=== PATIENT | male | born 1995 | race Caucasian/White ===

== ENCOUNTER → 2016-03-25 | Outpatient (CLI) | payer MEDICAID | LOC: RAD 17:33 | PROVIDERS: ATTEND Physician Assistant | DX: E04.9 Nontoxic goiter, unspecified (principal) | CPT/HCPCS: 76536 ==

== ENCOUNTER 2016-08-20 21:47 | Emergency (ER) | payer MEDICAID ==
[2016-08-20 22:00] VITALS: BP 140/63
== END 2016-08-20 23:50 | disposition left against medical advice (07) ==
LOC: ER 21:47
DX: Z53.21 Procedure and treatment not carried out due to patient leaving prior to being seen by health care provider (principal)

== ENCOUNTER → 2016-08-26 | Outpatient (CLI) | payer MEDICAID ==
[2016-08-26 13:04] LABS: ALANINE AMINOTRANSFERASE 39 U/L (21-72); ALBUMIN 4.5 g/dL (3.5-5.0); ALKALINE PHOSPHATASE 186 U/L (38-126); ANION GAP 12 (5-19); ASPARTATE AMINO TRANSFERASE 21 U/L (17-59); BILIRUBIN,DIRECT 0.3 mg/dL (0.0-0.4); BILIRUBIN,TOTAL 0.6 mg/dL (0.2-1.3); BLOOD UREA NITROGEN 8 mg/dL (7-20); CALCIUM 9.5 mg/dL (8.4-10.2); CARBON DIOXIDE 25 mmol/L (22-30); CHLORIDE 102 mmol/L (98-107); GLUCOSE 91 mg/dL (75-110); POTASSIUM 4.8 mmol/L (3.6-5.0); SODIUM 138.6 mmol/L (137-145); TOTAL PROTEIN 7.8 g/dL (6.3-8.2)
[2016-08-26 13:25] LABS: HEMATOCRIT 43.2 % (37.9-51.0); HEMOGLOBIN 14.7 g/dL (13.5-17.0); HGB HCT DIFFERENCE 0.9; MEAN CORPUSCULAR HEMOGLOBIN 28.9 pg (27.0-33.4); MEAN CORPUSCULAR VOLUME 85 fl (80-97); RED BLOOD COUNT 5.08 10^6/uL (4.35-5.55); RED CELL DISTRIBUTION WIDTH 14.9 % (11.5-14.0); WHITE BLOOD COUNT 7.1 10^3/uL (4.0-10.5)
[2016-08-26 13:40] LABS: THYROID STIMULATING HORMONE < 0.02 uIU/mL (0.47-4.68)
--- NOTE | 2016-08-26 21:55 | EKG REPORT ---
SEVERITY:- NORMAL ECG - SINUS RHYTHM : Confirmed by: Rosi Tsang 26-Aug-2016 21:54:45
== END ==
LOC: OD 11:39
PROVIDERS: ATTEND Physician Assistant
DX: Z01.810 Encounter for preprocedural cardiovascular examination (principal); Z01.812 Encounter for preprocedural laboratory examination; Z01.818 Encounter for other preprocedural examination; E05.00 Thyrotoxicosis with diffuse goiter without thyrotoxic crisis or storm
CPT/HCPCS: 36415; 80053; 84439; 84443; 85025; 85027; 93005; 93010

== ENCOUNTER 2016-10-08 18:38 | Emergency (ER) | payer MEDICAID ==
--- NOTE | 2016-10-08 18:53 | ER Document Report ---
ED Medical Screen (RME) - General Chief Complaint: Abnormal Lab Results Stated Complaint: ABNORMAL LABS TRAVEL OUTSIDE OF THE U.S. IN LAST 30 DAYS: No - HPI Notes: 10/08/16 18:53 Patient's thyroid has been removed and has been having low calciums patient's calcium today's outpatient laboratory testing was 5.8 mother states weeks of fatigue - Related Data Allergies/Adverse Reactions: Penicillins Allergy (Verified 09/10/15 08:13) Past Medical History - Past Medical History Cardiac Medical History: Denies: Hx Hypertension Pulmonary Medical History: Denies: Hx Asthma Endocrine Medical History: Denies: Hx Diabetes Mellitus Type 1 Renal/ Medical History: Denies: Hx Peritoneal Dialysis GI Medical History: Denies: Hx Gastroesophageal Reflux Disease Musculoskeltal Medical History: Denies Hx Arthritis, Reports Hx Musculoskeletal Trauma - left shoulder Psychiatric Medical History: Denies: Hx Attention Deficit Hyperactivity Disorder Past Surgical History: Reports: Hx Orthopedic Surgery - left shoulder - Immunizations Immunizations up to date: Yes Hx Diphtheria, Pertussis, Tetanus Vaccination: Yes Review of Systems - Review of Systems Constitutional: Other - Low calcium Physical Exam - Vital signs Vitals: Temp Pulse Resp BP Pulse Ox 98.0 F 66 16 116/69 98 10/08/16 18:43 10/08/16 18:43 10/08/16 18:43 10/08/16 18:43 10/08/16 18:43 - General General appearance: Appears well In distress: None Course - Vital Signs Vital signs: Temp Pulse Resp BP Pulse Ox 98.0 F 66 16 116/69 98 10/08/16 18:43 10/08/16 18:43 10/08/16 18:43 10/08/16 18:43 10/08/16 18:43
[2016-10-08 19:30] LABS: ABSOLUTE BASOPHILS # (AUTO) 0.1 10^3/uL (0.0-0.2); ABSOLUTE EOSINOPHILS # (AUTO) 0.3 10^3/uL (0.0-0.6); ABSOLUTE LYMPHOCYTES (AUTO) 3.4 10^3/uL (0.5-4.7); ABSOLUTE MONOCYTES (AUTO) 0.6 10^3/uL (0.1-1.4); ABSOLUTE NEUT (AUTO) 9.7 10^3/uL (1.7-8.2); BASOPHILS % (AUTO) 0.7 % (0-2); HEMATOCRIT 40.4 % (37.9-51.0); HEMOGLOBIN 13.9 g/dL (13.5-17.0); HGB HCT DIFFERENCE 1.3; LYMPHOCYTES % (AUTO) 24.2 % (13-45); MEAN CORPUSCULAR HGB CONC 34.5 g/dL (32.0-36.0); MEAN CORPUSCULAR VOLUME 87 fl (80-97); MONOCYTES % (AUTO) 4.1 % (3-13); RED BLOOD COUNT 4.64 10^6/uL (4.35-5.55); RED CELL DISTRIBUTION WIDTH 14.3 % (11.5-14.0); WHITE BLOOD COUNT 14.1 10^3/uL (4.0-10.5)
[2016-10-08 19:46] LABS: ALANINE AMINOTRANSFERASE 25 U/L (21-72); ALBUMIN 4.7 g/dL (3.5-5.0); ALKALINE PHOSPHATASE 154 U/L (38-126); ANION GAP 15 (5-19); ASPARTATE AMINO TRANSFERASE 25 U/L (17-59); BILIRUBIN,DIRECT 0.4 mg/dL (0.0-0.4); BILIRUBIN,TOTAL 0.6 mg/dL (0.2-1.3); BLOOD UREA NITROGEN 10 mg/dL (7-20); CARBON DIOXIDE 27 mmol/L (22-30); CHLORIDE 99 mmol/L (98-107); CREATININE RESULT 0.93 mg/dL (0.52-1.25); GLUCOSE 67 mg/dL (75-110); POTASSIUM 4.3 mmol/L (3.6-5.0); SODIUM 140.5 mmol/L (137-145); TOTAL PROTEIN 7.8 g/dL (6.3-8.2)
--- NOTE | 2016-10-08 19:52 | ER Document Report ---
ED General - General Mode of Arrival: Ambulatory Information source: Patient TRAVEL OUTSIDE OF THE U.[place]. IN LAST 30 DAYS: No <DANK VALLES - Last Filed: 10/09/16 04:01> <CHANCE LAM - Last Filed: 10/11/16 15:21> - General Chief Complaint: Abnormal Lab Results Stated Complaint: ABNORMAL LABS Time Seen by Provider: 10/08/16 18:53 Notes: Patient is a 21-year-old male who presents to the emergency department today with complaints of abnormal outpatient labs. Patient was found to have a low calcium and low vitamin D an outpatient labs today at [facility]. Patient has Graves' disease and had subsequent thyroid removal. Patient was called by Orquidea GARNER and told about lab results and she told the patient to come to the ED. Patient states his only complaint is generalized fatigue and feeling "out of it". (DANK VALLES) - Related Data Allergies/Adverse Reactions: Penicillins Allergy (Verified 09/10/15 08:13) Past Medical History - General Information source: Patient, Parent - Social History Smoking Status: Never Smoker Cigarette use (# per day): No Frequency of alcohol use: None Drug Abuse: None Lives with: Family Family History: Reviewed & Not Pertinent, Hypertension Endocrine Medical History: Reports: Hx Graves' Disease Musculoskeltal Medical History: Reports Hx Musculoskeletal Trauma - left shoulder Past Surgical History: Reports: Hx Orthopedic Surgery - left shoulder, Hx Thyroid Surgery - removal - Immunizations Immunizations up to date: Yes Hx Diphtheria, Pertussis, Tetanus Vaccination: Yes <DANK VALLES - Last Filed: 10/09/16 04:01> Review of Systems - Review of Systems Constitutional: See HPI, Other - abnormal potassium and vitamin D on outpatient labs, generalized fatigue EENT: No symptoms reported Cardiovascular: No symptoms reported Respiratory: No symptoms reported Gastrointestinal: No symptoms reported Genitourinary: No symptoms reported Male Genitourinary: No symptoms reported Musculoskeletal: No symptoms reported Skin: No symptoms reported Hematologic/Lymphatic: No symptoms reported Neurological/Psychological: No symptoms reported -: Yes All other systems reviewed and negative <DANK VALLES - Last Filed: 10/09/16 04:01> Physical Exam <DANK VALLES - Last Filed: 10/09/16 04:01> <CHANCE LAM - Last Filed: 10/11/16 15:21> - Vital signs Vitals: Temp Pulse Resp BP Pulse Ox 98.0 F 66 16 116/69 98 10/08/16 18:43 10/08/16 18:43 10/08/16 18:43 10/08/16 18:43 10/08/16 18:43 - Notes Notes: Physical Exam: General: Alert, appears well. Positive chovstek's sign and trousseau. HEENT: Normocephalic. Atraumatic. PERRL. Extraocular movements intact. Oropharynx clear. Neck: Supple. Non-tender. Respiratory: No respiratory distress. Clear and equal breath sounds bilaterally. Cardiovascular: Regular rate and rhythm. Abdominal: Normal Inspection. Non-tender. No distension. Normal Bowel Sounds. Back: Non-tender. No deformity or step off. Extremities: Moves all four extremities. Upper extremities: Normal inspection. Normal ROM. Lower extremities: Normal inspection. No edema. Normal ROM. Neurological: Normal cognition. AAOx4. Normal speech. Psychological: Normal affect. Normal Mood. Skin: Warm. Dry. Normal color. (DANK VALLES) Course - Laboratory Result Diagrams: 10/08/16 19:11 10/08/16 19:11 <DANK VALLES - Last Filed: 10/09/16 04:01> - Laboratory Result Diagrams: 10/08/16 19:11 10/08/16 19:11 <CHANCE LAM - Last Filed: 10/11/16 15:21> - Re-evaluation Re-evalutation: Patient presents emergency room with his mother with chief complaint of low calcium. He has Graves' disease and had a thyroidectomy done in August at [facility]. Since then he has been seeing an outpatient dexigraph operator physician early childhood teacher assistant and has been on high doses of calcitriol Synthroid Tylenol No. 3 Phenergan ibuprofen and propranolol for heart palpitations. He has been repeatedly having low calciums and gets muscle spasms and fatigue from it. He had outpatient labs drawn yesterday showing his calcium to be low and was told to go to the emergency department. On examination he is awake alert hemodynamically stable. He is in no respiratory distress he does have positive chovstek's sign and trousseau, and both calcium and ionized calcium are low. I initially attempted to contact his physician early childhood teacher assistant but she was not on-call. I contacted [facility] and they had a physician call me back who is part of the group. 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 At this point the hospital does have an on-call dexigraph operator Dr. Gould at [facility] I spoke with her personally and she stated the reason his calcium is not coming up is because he is only taking calcitriol and not calcium. She said in addition to the calcitriol and Synthroid he needs to start on Os-Brien 500 mg with each meal magnesium 400 mg a day. I have given him IV calcium he is going to start on these medications right away and she states he does not need to be admitted and is stable to follow-up next week in the office discussed this with the family and reasons for ED return sooner (CHANCE LAM) - Vital Signs Vital signs: Temp Pulse Resp BP Pulse Ox 97.8 F 68 18 120/68 100 10/08/16 23:18 10/08/16 23:18 10/08/16 23:18 10/08/16 23:18 10/08/16 23:18 - Laboratory Laboratory results interpreted by me: 10/08/16 10/08/16 10/08/16 19:11 19:11 20:05 WBC 14.1 H RDW 14.3 H Absolute Neutrophils 9.7 H Glucose 67 L Calcium 5.1 L* Ionized Calcium [place] 0.68 L Alkaline Phosphatase 154 H - EKG Interpretation by Me Additional EKG results interpreted by me: 10/08/16 22:52 EKG interpreted by myself to reveal sinus rhythm at 66 bpm with no acute ST segment elevation or depression (CHANCE LAM) Critical Care Note - Critical Care Note Total time excluding time spent on procedures (mins): 45 <CHANCE LAM - Last Filed: 10/11/16 15:21> Discharge <DANK VALLES - Last Filed: 10/09/16 04:01> <CHANCE LAM - Last Filed: 10/11/16 15:21> - Discharge Clinical Impression: Hypocalcemia Condition: Stable Disposition: HOME, SELF-CARE Additional Instructions: You have experienced hypocalcemia since you have had your thyroid removed and it is low today. I have spoken with an dexigraph operator at [facility] who is instructed me to have you continue the calcitriol as you have been taking it. You need to buy Os-Brien [id number] and take 500 mg with each meal. In addition to that you need to take magnesium 400 mg daily. I have replaced her calcium here through the IV and she states you are safe to follow-up in the office with your primary care provider next week. Return for increasing worsening or new symptoms Referrals: FRANTZ OCAMPO PA-C [Primary Care Provider] - Follow up in 3-5 days (Follow-up with your endocrinology physician early childhood teacher assistant this week) Victor Hugoibe Attestation: 10/08/16 22:52 I personally performed the services described in the documentation reviewed the documentation recorded by my scribe in my presence and it accurately and completely records my words and actions (CHANCE LAM) Noemye Documentation - Scribe Written by Heydi:: Heydi Dumont, 10/08/2016 2018 acting as scribe for :: Armin <DANK VALLES - Last Filed: 10/09/16 04:01>
[2016-10-08 19:54] LABS: CALCIUM 5.1 mg/dL (8.4-10.2)
[2016-10-08] MEDS ORDERED: CALCIUM GLUCONATE 1000 MG/10 ML INJ IV ONE (20:29)
--- NOTE | 2016-10-08 22:50 | EKG REPORT ---
SEVERITY:- ABNORMAL ECG - SINUS RHYTHM PROLONGED QT INTERVAL : Confirmed by: Rosi Tsang 08-Oct-2016 22:49:37
[2016-10-08 23:20] VITALS: BP 120/68
== END 2016-10-08 23:19 | disposition home or self-care (01) ==
LOC: ER 18:38
DX: E83.51 Hypocalcemia (principal); R53.83 Other fatigue
CPT/HCPCS: 93005; 99285; 96374; 36415; 85025; 80053; 82330; 93010; J0610

== ENCOUNTER → 2016-10-08 | Outpatient (CLI) | payer MEDICAID | LOC: OD 13:50 | PROVIDERS: ATTEND Physician Assistant | DX: E83.51 Hypocalcemia (principal) | CPT/HCPCS: 36415; 82306; 82310 ==

== ENCOUNTER → 2016-10-17 | Outpatient (CLI) | payer MEDICAID ==
[2016-10-17 20:22] LABS: CALCIUM 7.6 mg/dL (8.4-10.2); MAGNESIUM 2.2 mg/dL (1.6-2.3)
[2016-10-17 20:51] LABS: THYROID STIMULATING HORMONE 5.88 uIU/mL (0.47-4.68)
== END ==
LOC: LAB 19:56
PROVIDERS: ATTEND Physician Assistant
DX: E83.51 Hypocalcemia (principal); E89.0 Postprocedural hypothyroidism
CPT/HCPCS: 36415; 82310; 83735; 84439; 84443

== ENCOUNTER → 2016-11-04 | Outpatient (CLI) | payer MEDICAID ==
--- NOTE | 2016-11-04 14:15 | RADIOLOGY REPORT (SQ) ---
EXAM DESCRIPTION: CT HEAD WITHOUT COMPLETED DATE/TIME: 11/04/2016 1:32 pm REASON FOR STUDY: CONSTANT EXOPHTHALMOS, LEFT EYE H05.242 CONSTANT EXOPHTHALMOS, LEFT EYE COMPARISON: CT orbits same date Thyroid ultrasound 03/25/2016 TECHNIQUE: Axial images acquired through the brain without intravenous contrast. Images reviewed wi th bone, brain and subdural windows. Images stored on PACS. All CT scanners at this facility use dose modulation, iterative reconstruction, and/or weight based d osing when appropriate to reduce radiation dose to as low as reasonably achievable (ALARA). [facility]: Dose Right [facility]: CareDose [facility]: Dose Right [facility]: Teradose 4D [facility]: [employer] RADIATION DOSE: Up-to-date CT equipment and radiation dose reduction techniques were employed. CTDIv ol: 49.0 mGy. DLP: 881 mGy-cm. mGy. LIMITATIONS: Mild motion artifact. FINDINGS: VENTRICLES: Normal size and contour. CEREBRUM: No masses. No hemorrhage. No midline shift. No evidence for acute infarction. Normal gra y/white matter differentiation. No areas of low density in the white matter. CEREBELLUM: No masses. No hemorrhage. No alteration of density. No evidence for acute infarction. EXTRAAXIAL SPACES: No fluid collections. No masses. ORBITS AND GLOBE: No intra- or extraconal masses. Normal contour of globe without masses. CALVARIUM: No fracture. PARANASAL SINUSES: No fluid or mucosal thickening. SOFT TISSUES: No mass or hematoma. OTHER: No other significant finding. IMPRESSION: NORMAL BRAIN CT WITHOUT CONTRAST. COMMENT: Quality ID # [id number]: Final reports with documentation of one or more dose reduction techniques (e.g., Automated exposure control, adjustment of the mA and/or kV according to patient size, use of iterative reconstruction technique) TECHNICAL DOCUMENTATION: JOB ID: [id number] [employer]- All Rights Reserved
--- NOTE | 2016-11-04 14:26 | RADIOLOGY REPORT (SQ) ---
EXAM DESCRIPTION: CT ORBIT/SELLA WITHOUT COMPLETED DATE/TIME: 11/04/2016 1:32 pm REASON FOR STUDY: CONSTANT EXOPHTHALMOS, LEFT EYE H05.242 CONSTANT EXOPHTHALMOS, LEFT EYE COMPARISON: None. TECHNIQUE: Noncontrasted images through the orbits windowed for bone and soft tissue. Additional co remi and sagittal reconstructed images reviewed. All images stored on PACS. All CT scanners at this facility use dose modulation, iterative reconstruction, and/or weight based d osing when appropriate to reduce radiation dose to as low as reasonably achievable (ALARA). [facility]: Dose Right [facility]: CareDose [facility]: Dose Right [facility]: Teradose 4D [facility]: [employer] RADIATION DOSE: 14.2 mGy. LIMITATIONS: None. FINDINGS: FACIAL BONES: No fracture or bone lesion. ORBITS: Intact. No fracture. Symmetric intact globes. No gross proptosis. On the coronal reconstruction images 19 through 25, there is thickening of the medial rectus and infe rior rectus muscle bellies, suggesting early changes of thyroid ophthalmopathy. Set medial rectus mu scle belly thickening is also seen on axial image 25. PARANASAL SINUSES: Clear. No significant mucosal thickening, mass or fluid. No nasal polyps. Maxilla ry sinus outlets are patent. SOFT TISSUES: No mass or edema. INFERIOR BRAIN: Limited view. No acute findings. OTHER: No other significant finding. IMPRESSION: Findings suggest early thyroid ophthalmopathy, with thickening of the muscle bellies of the medial rectus and inferior rectus muscles. No definite proptosis TECHNICAL DOCUMENTATION: JOB ID: [id number] Quality ID # [id number]: Final reports with documentation of one or more dose reduction techniques (e.g., Au tomated exposure control, adjustment of the mA and/or kV according to patient size, use of iterative reconstruction technique) 2010 [employer]- All Rights Reserved
== END ==
LOC: RAD 13:09
PROVIDERS: ATTEND Ophthalmology
DX: H05.242 Constant exophthalmos, left eye (principal)
CPT/HCPCS: 70450; 70480

== ENCOUNTER → 2016-11-06 | Outpatient (CLI) | payer MEDICAID ==
[2016-11-06 19:51] LABS: BLOOD UREA NITROGEN 10 mg/dL (7-20)
[2016-11-06 20:10] LABS: ANION GAP 16 (5-19); CARBON DIOXIDE 26 mmol/L (22-30); CHLORIDE 104 mmol/L (98-107); CREATININE RESULT 0.87 mg/dL (0.52-1.25); GLUCOSE 75 mg/dL (75-110); POTASSIUM 4.1 mmol/L (3.6-5.0); SODIUM 145.7 mmol/L (137-145)
[2016-11-06 20:21] LABS: THYROID STIMULATING HORMONE 5.19 uIU/mL (0.47-4.68)
[2016-11-06 20:26] LABS: CALCIUM 6.5 mg/dL (8.4-10.2)
== END ==
LOC: LAB 19:20
PROVIDERS: ATTEND Physician Assistant
DX: E83.51 Hypocalcemia (principal); E89.0 Postprocedural hypothyroidism
CPT/HCPCS: 36415; 80048; 84439; 84443

== ENCOUNTER → 2016-11-19 | Outpatient (CLI) | payer MEDICAID ==
[2016-11-19 17:20] LABS: ANION GAP 15 (5-19); BLOOD UREA NITROGEN 6 mg/dL (7-20); CALCIUM 7.5 mg/dL (8.4-10.2); CARBON DIOXIDE 29 mmol/L (22-30); CHLORIDE 99 mmol/L (98-107); CREATININE RESULT 0.84 mg/dL (0.52-1.25); GLUCOSE 86 mg/dL (75-110); POTASSIUM 4.1 mmol/L (3.6-5.0); SODIUM 142.5 mmol/L (137-145)
[2016-11-19 17:49] LABS: THYROID STIMULATING HORMONE 0.87 uIU/mL (0.47-4.68)
== END ==
LOC: LAB 16:44
PROVIDERS: ATTEND Physician Assistant
DX: E83.51 Hypocalcemia (principal)
CPT/HCPCS: 36415; 80048; 84439; 84443

== ENCOUNTER → 2017-01-07 | Outpatient (CLI) | payer MEDICAID ==
[2017-01-07 16:06] LABS: THYROID STIMULATING HORMONE 3.44 uIU/mL (0.47-4.68)
[2017-01-09 13:01] LABS: VITAMIN D 25-HYDROXY 34.5 ng/mL (30.0-100.0)
== END ==
LOC: OD 13:46
PROVIDERS: ATTEND Physician Assistant
DX: E89.0 Postprocedural hypothyroidism (principal); E83.51 Hypocalcemia
CPT/HCPCS: 36415; 82306; 82310; 83970; 84439; 84443

== ENCOUNTER → 2017-06-28 | Outpatient (CLI) | payer MEDICAID ==
[2017-06-28 22:21] LABS: FREE T4 (FREE THYROXINE) 1.12 ng/dL (0.78-2.19)
[2017-06-28 22:35] LABS: THYROID STIMULATING HORMONE 35.7 uIU/mL (0.47-4.68)
== END ==
LOC: LAB 21:25
PROVIDERS: ATTEND Physician Assistant
DX: E83.51 Hypocalcemia (principal); E89.0 Postprocedural hypothyroidism
CPT/HCPCS: 36415; 82310; 84439; 84443

== ENCOUNTER 2018-03-02 12:12 | Emergency (ER) | payer SELFPAY ==
[2018-03-02] MEDS ORDERED: CALCIUM GLUCONATE 1000 MG/10 ML INJ IV ONE (13:51)
[2018-03-02 14:38] LABS: ALANINE AMINOTRANSFERASE 16 U/L (21-72); ALBUMIN 4.9 g/dL (3.5-5.0); ALKALINE PHOSPHATASE 71 U/L (38-126); ANION GAP 9 (5-19); ASPARTATE AMINO TRANSFERASE 19 U/L (17-59); BILIRUBIN,DIRECT 0.3 mg/dL (0.0-0.4); BILIRUBIN,TOTAL 0.7 mg/dL (0.2-1.3); BLOOD UREA NITROGEN 7 mg/dL (7-20); CALCIUM 8.2 mg/dL (8.4-10.2); CARBON DIOXIDE 28 mmol/L (22-30); CHLORIDE 102 mmol/L (98-107); GLUCOSE 88 mg/dL (75-110); POTASSIUM 4.2 mmol/L (3.6-5.0); TOTAL PROTEIN 8.1 g/dL (6.3-8.2)
--- NOTE | 2018-03-02 14:59 | ER Document Report ---
ED Medical Screen (RME) - General Chief Complaint: Weakness Stated Complaint: WEAKNESS,EYE PAIN,MUSCLE CRAMPS Time Seen by Provider: 03/02/18 13:50 Mode of Arrival: Ambulatory Information source: Patient TRAVEL OUTSIDE OF THE [place] IN LAST 30 DAYS: No - HPI Patient complains to provider of: Hypocalcemia Onset: Other - 22-year-old man who had Graves' disease 4 years prior as a result had his thyroid removed as well as 3 parathyroid glands has been on Synthroid as well as calcium supplementation since that time has lost medical coverage over the last several weeks as a result has run out of Synthroid 3 days ago as well as Calcitrol approximately 2 weeks ago. He noted that his face began to twitch today upon tapping which is significant in the past for his calcium being low. - Related Data Allergies/Adverse Reactions: Penicillins Allergy (Verified 03/02/18 12:13) Past Medical History - General Information source: Patient, Relative - Social History Cigarette use (# per day): Yes Chew tobacco use (# tins/day): No Frequency of alcohol use: None Drug Abuse: None - Past Medical History Cardiac Medical History: Denies: Hx Hypertension Pulmonary Medical History: Denies: Hx Asthma Endocrine Medical History: Reports: Hx Graves' Disease. Denies: Hx Diabetes Mellitus Type 1 Renal/ Medical History: Denies: Hx Peritoneal Dialysis GI Medical History: Denies: Hx Gastroesophageal Reflux Disease Musculoskeltal Medical History: Denies Hx Arthritis, Reports Hx Musculoskeletal Trauma - left shoulder Psychiatric Medical History: Denies: Hx Attention Deficit Hyperactivity Disorder Past Surgical History: Reports: Hx Orthopedic Surgery - left shoulder, Hx Thyroid Surgery - removal - Immunizations Immunizations up to date: Yes Hx Diphtheria, Pertussis, Tetanus Vaccination: Yes Review of Systems - Review of Systems -: Yes All other systems reviewed and negative Physical Exam - Vital signs Vitals: Temp Pulse Resp BP Pulse Ox 98.6 F 61 18 126/77 H 98 03/02/18 12:16 03/02/18 12:16 03/02/18 12:16 03/02/18 12:16 03/02/18 12:16 Interpretation: Normal - General General appearance: Appears well, Alert - HEENT Head: Normocephalic, Atraumatic Eyes: Normal Pupils: PERRL - Respiratory Respiratory status: No respiratory distress Chest status: Nontender Breath sounds: Normal Chest palpation: Normal - Cardiovascular Rhythm: Regular Heart sounds: Normal auscultation Murmur: No - Abdominal Inspection: Normal Distension: No distension Bowel sounds: Normal Tenderness: Nontender Organomegaly: No organomegaly - Back Back: Normal, Nontender - Extremities General upper extremity: Normal inspection, Nontender, Normal color, Normal ROM, Normal temperature General lower extremity: Normal inspection, Nontender, Normal color, Normal ROM, Normal temperature, Normal weight bearing. No: Chris's sign - Neurological Neuro grossly intact: Yes Cognition: Normal Orientation: AAOx4 [place] Coma Scale Eye Opening: Spontaneous Sara Coma Scale Verbal: Oriented Sara Coma Scale Motor: Obeys Commands Sara Coma Scale Total: 15 Speech: Normal Motor strength normal: LUE, RUE, LLE, RLE Sensory: Normal - Psychological Associated symptoms: Normal affect, Normal mood - Skin Skin Temperature: Warm Skin Moisture: Dry Skin Color: Normal Course - Re-evaluation Re-evalutation: This patient's bilateral face does demonstrate that knee to percussion. Because he has been off of his calcium supplement does have a known history of hypothyroidism will obtain calcium level administer 1 g IV calcium gluconate while here. Defer further diagnostics as he is relatively symptom-free. Patient's calcium level was 8.2 today. He will be dosed with his Synthroid 200 mcg daily as he had been previously. He will be given his calcium supplement. At this time he is able to ambulate without any obvious issues, has muscle that do not demonstrate tetany at this time. He and his mother in agreement with this plan, they prefer to defer the use of Calcitrol at this time as he has been doing well without it. They will follow- up in the next week. They were given a month's prescription of both medications. - Vital Signs Vital signs: Temp Pulse Resp BP Pulse Ox 98.3 F 62 16 139/97 H 98 03/02/18 15:30 03/02/18 15:30 03/02/18 15:30 03/02/18 15:30 03/02/18 15:30 - Laboratory Result Diagrams: 03/02/18 13:58 Laboratory results interpreted by me: 03/02/18 13:58 Calcium 8.2 L ALT 16 L Doctor's Discharge - Discharge Clinical Impression: Hypocalcemia, Muscle twitch Hypothyroid Qualifiers: Hypothyroidism type: unspecified Qualified Code(s): E03.9 - Hypothyroidism, unspecified Condition: Good Disposition: HOME, SELF-CARE Instructions: Hypothyroidism ([facility]) Additional Instructions: You were seen today in the emergency department for your low calcium level. Today your calcium level is 8.2, that is pretty good. The normal range is 8.4. You are given some calcium through an IV. You have been given a prescription for your Synthroid. You will be given a prescription for the Os-Brien to take. Please return in case of any worsening shortness of breath, seizures or twitches. Prescriptions: Calcium Carbonate/Vitamin D3 [Os-Brien 500+D3 Caplet] 1 each PO Q3 #240 tablet Levothyroxine Sodium [Synthroid] 200 mcg PO DAILY #30 tablet Referrals: FRANTZ OCAMPO PA-C [Primary Care Provider] - Follow up as needed
[2018-03-02 15:31] VITALS: BP 139/97
== END 2018-03-02 15:30 | disposition home or self-care (01) ==
LOC: ER 12:12
DX: E83.51 Hypocalcemia (principal); E03.9 Hypothyroidism, unspecified; R25.3 Fasciculation; R53.1 Weakness; H92.09 Otalgia, unspecified ear; F17.210 Nicotine dependence, cigarettes, uncomplicated; Z88.0 Allergy status to penicillin
CPT/HCPCS: 99285; 96374; 36415; 80053; J0610

== ENCOUNTER → 2019-06-18 | Outpatient (CLI) | payer OTHER ==
[2019-06-18 17:03] LABS: ABSOLUTE BASOPHILS # (AUTO) 0.1 10^3/uL (0.0-0.2); ABSOLUTE EOSINOPHILS # (AUTO) 0.2 10^3/uL (0.0-0.6); ABSOLUTE LYMPHOCYTES (AUTO) 2.4 10^3/uL (0.5-4.7); ABSOLUTE MONOCYTES (AUTO) 0.5 10^3/uL (0.1-1.4); ABSOLUTE NEUT (AUTO) 8.5 10^3/uL (1.7-8.2); BASOPHILS % (AUTO) 1.1 % (0-2); HEMATOCRIT 40.9 % (37.9-51.0); HEMOGLOBIN 14.6 g/dL (13.5-17.0); LYMPHOCYTES % (AUTO) 20.1 % (13-45); MEAN CORPUSCULAR HEMOGLOBIN 32.9 pg (27.0-33.4); MEAN CORPUSCULAR HGB CONC 35.6 g/dL (32.0-36.0); MEAN CORPUSCULAR VOLUME 92 fl (80-97); MONOCYTES % (AUTO) 4.4 % (3-13); PLATELET COUNT 235 10^3/uL (150-450); RED BLOOD COUNT 4.43 10^6/uL (4.35-5.55); RED CELL DISTRIBUTION WIDTH 13.5 % (11.5-14.0); SEGMENTED NEUTROPHILS % (AUTO) 72.4 % (42-78); TOTAL CELLS COUNTED % (AUTO) 100 %; WHITE BLOOD COUNT 11.8 10^3/uL (4.0-10.5)
[2019-06-18 17:12] LABS: ALBUMIN 5.1 g/dL (3.5-5.0); ALKALINE PHOSPHATASE 64 U/L (38-126); ANION GAP 8 (5-19); ASPARTATE AMINO TRANSFERASE 20 U/L (17-59); BILIRUBIN,TOTAL 0.6 mg/dL (0.2-1.3); BLOOD UREA NITROGEN 7 mg/dL (7-20); CALCIUM 8.1 mg/dL (8.4-10.2); CARBON DIOXIDE 29 mmol/L (22-30); CHLORIDE 102 mmol/L (98-107); CHOLESTEROL 214.76 mg/dL (0-200); GLUCOSE 80 mg/dL (75-110); POTASSIUM 3.9 mmol/L (3.6-5.0); TOTAL PROTEIN 8.4 g/dL (6.3-8.2); TRIGLYCERIDES 59 mg/dL (<150)
[2019-06-18 17:23] LABS: DIRECT LDL 167 mg/dL (<100)
[2019-06-18 17:28] LABS: FREE T4 (FREE THYROXINE) 0.59 ng/dL (0.78-2.19)
[2019-06-18 17:42] LABS: THYROID STIMULATING HORMONE 55.5 uIU/mL (0.47-4.68)
== END ==
LOC: CCC 16:17
PROVIDERS: ATTEND Family Medicine
DX: Z86.39 Personal history of other endocrine, nutritional and metabolic disease (principal)
CPT/HCPCS: 36415; 80053; 80061; 83036; 84439; 84443; 85025

== ENCOUNTER → 2019-06-22 | Outpatient (CLI) | payer OTHER ==
[2019-06-22 16:01] LABS: CALCIUM 8.5 mg/dL (8.4-10.2); PHOSPHORUS 3.4 mg/dL (2.5-4.5)
== END ==
LOC: CCC 14:14
PROVIDERS: ATTEND Internal Medicine
DX: E83.51 Hypocalcemia (principal)
CPT/HCPCS: 36415; 82306; 82310; 83735; 84100